=== PATIENT | female | born 1985 | race Caucasian/White ===

== ENCOUNTER 2022-09-19 06:35 | Day surgery (SDC) | payer OTHER ==
[2022-09-17 11:40] LABS: CARBON DIOXIDE,CO2 25.7 mmol/L (21.0-32.0); POTASSIUM,K 3.9 mmol/L (3.5-5.1)
[~2022-09-19 06:35] MED LIST: Lactated Ringers 1,000 ML IV SCH; Scopolamine 1.5 MG Transdermal Patch ONE; Scopolamine 1.5 MG Transdermal Patch TOP ONE; Sodium Chloride 0.9% 10 ML Syringe FLUSH PRN; Sodium Chloride 0.9% 2.5 ML Syringe FLUSH PRN; Sodium Chloride 0.9% 20 ML SDV IV PRN; ceFAZolin 1 GM in Premix Bag 1 BAG IV ONE
[2022-09-19] MEDS ORDERED: Naloxone 0.4 MG/ML SDV IVPUSH PRN (07:28)
[2022-09-19] MEDS ORDERED: Metoclopramide 10 MG/2 ML SDV IVPUSH PRN (07:28)
[2022-09-19] MEDS ORDERED: fentaNYL 50 MCG/ML SDV IVPUSH PRN (07:28)
[2022-09-19] MEDS ORDERED: Ondansetron 4 MG/2 ML SDV IVPUSH PRN ×2 (07:28→10:47)
[2022-09-19] MEDS ORDERED: Morphine 2 MG/ML SYRINGE IVPUSH PRN (07:28)
[2022-09-19] MEDS ORDERED: HYDROmorphone 1 MG/ML Syringe IVPUSH PRN (07:28)
[2022-09-19] MEDS ORDERED: Albuterol 0.083% 2.5 MG/3 ML Neb Soln NEB PRN (07:28)
[2022-09-19] MEDS ORDERED: Ketorolac 30 MG/ML SDV ONE (07:33)
[2022-09-19] MEDS ORDERED: Dexamethasone 4 MG/ML 5 ML MDV ONE (07:33)
[2022-09-19] MEDS ORDERED: Rocuronium Bromide 50 MG/5 ML Syringe ONE ×2 (07:33→09:49)
[2022-09-19] MEDS ORDERED: Lidocaine 2% 5 ML SDV ONE (07:33)
[2022-09-19] MEDS ORDERED: ceFAZolin 2 GM Vial ONE (07:33)
[2022-09-19] MEDS ORDERED: Ondansetron 4 MG/2 ML SDV ONE (07:33)
[2022-09-19] MEDS ORDERED: Dexmedetomidine 200 MCG/2 ML SDV ONE (07:33)
[2022-09-19] MEDS ORDERED: ceFAZolin 1 GM Vial ONE (07:34)
[2022-09-19] MEDS ORDERED: Ketamine 500 mg/10 ML MDV ONE (07:34)
[2022-09-19] MEDS ORDERED: Propofol 200 MG/20 ML SDV ONE ×3 (07:42→09:42)
[2022-09-19] MEDS ORDERED: fentaNYL 250 MCG/5 ML SDV ONE (07:42)
[2022-09-19] MEDS ORDERED: Fluorescein 5 ML Vial ONE (07:49)
[2022-09-19] MEDS ORDERED: Bupivacaine 0.25% 30 ML SDV ONE (07:56)
[2022-09-19] MEDS ORDERED: Magnesium Sulfate (4.06 MEQ/ML) 5 GM/10 ML SDV ONE (08:24)
[2022-09-19] MEDS ORDERED: ePHEDrine 50 MG/ML SDV ONE (08:43)
[2022-09-19] MEDS ORDERED: Sugammadex Sodium 200 MG/2 ML VIAL ONE (09:20)
[2022-09-19] MEDS ORDERED: Promethazine 25 MG/ML SDV IM PRN (10:47)
[2022-09-19] MEDS ORDERED: Ketorolac 30 MG/ML SDV IVPUSH ONE (10:47)
[2022-09-19] MEDS ORDERED: Morphine 4 MG/ML Syringe IVPUSH PRN (10:47)
[2022-09-19] MEDS ORDERED: Acetaminophen/oxyCODONE 325-5 MG Tab PO PRN (10:47)
[2022-09-19] MEDS: Acetaminophen/oxyCODONE 325-5 MG Tab PO PRN ×2 (14:42→20:21)
[2022-09-19] MEDS: Ketorolac 30 MG/ML SDV IVPUSH PRN (18:25)
[2022-09-20] MEDS: Ketorolac 30 MG/ML SDV IVPUSH PRN ×2 (00:15→09:28)
[2022-09-20 05:50] LABS: CARBON DIOXIDE,CO2 28.2 mmol/L (21.0-32.0); POTASSIUM,K 4.1 mmol/L (3.5-5.1)
[2022-09-20] MEDS: Acetaminophen/oxyCODONE 325-5 MG Tab PO PRN (09:29)
== END 2022-09-20 10:20 | disposition home or self-care (01) ==
LOC: MW.SDS 06:35 → MW.OB 12:20 → MW.SDS 09-20 10:20
PROVIDERS: ATTEND Obstetrics & Gynecology
DX: D23.5 Other benign neoplasm of skin of trunk (principal); K21.9 Gastro-esophageal reflux disease without esophagitis; F41.9 Anxiety disorder, unspecified; F32.A Depression, unspecified; E66.9 Obesity, unspecified; J45.909 Unspecified asthma, uncomplicated; Z79.899 Other long term (current) drug therapy; Z91.040 Latex allergy status; Z98.890 Other specified postprocedural states; Z68.42 Body mass index [BMI] 45.0-49.9, adult
CPT/HCPCS: 36415; 58571; 80048; 84703; 85025; 85027; 86850; 86900; 86901; A9270; J0131; J0690; J1100; J1170; J1885; J2704; J3010; J3475; J3490; J7030; J7120; 00840; 64488; J2405